=== PATIENT | female | born 1970 | race Caucasian/White ===

== ENCOUNTER 2020-03-18 07:48 | Outpatient (CLI) | payer BC, SELFPAY ==
--- NOTE | ~2020-03-18 | US_ITS ---
US right upper quadrant INDICATION: Elevated liver enzymes. PROCEDURE: Realtime right upper abdominal ultrasound. COMPARISON: No prior studies for comparison. FINDINGS: The pancreas is not well visualized due to bowel gas. No mass identified in the visualized pancreatic parenchyma. Liver echotexture is increased, consistent with fatty infiltration. There is normal directional flow in the portal vein. The gallbladder is normal without stones, gallbladder wall thickening or pericholecystic fluid. Comm on bile duct measures 4 mm. No sonographic Denis's sign. IMPRESSION: 1: Hepatic steatosis. Reviewed, dictated and finalized at location A. IMPRESSION: 1: Hepatic steatosis.
== END 2020-03-18 07:49 | disposition home or self-care (01) ==
PROVIDERS: PCP Internal Medicine; Visit Provider Internal Medicine
DX: R94.5 Abnormal results of liver function studies (principal)
CPT/HCPCS: 76705

== ENCOUNTER 2021-10-05 15:23 | Outpatient (CLI) | payer BC, SELFPAY ==
--- NOTE | ~2021-10-05 | US_ITS ---
EXAMINATION: US venous doppler [facility] DATE: 10/05/2021 15:43 INDICATION: Lower limb swelling. TECHNIQUE: Grayscale ultrasound images without and with compression and Doppler ultrasound images of the bilateral lower extremity veins were obtained. COMPARISON: None. FINDINGS: The visualized portions of right common femoral vein, profunda (deep) femoral vein, femoral vein, pop liteal vein, peroneal veins, posterior tibial veins, and greater saphenous vein outflow are patent. The visualized portions of left common femoral vein, profunda femoral vein, femoral vein, popliteal v ein, peroneal veins, posterior tibial veins, and greater saphenous vein outflow are patent. IMPRESSION: 1. No deep venous thrombosis. Reviewed, dictated and finalized at location A. PRESIDENT
== END 2021-10-05 15:24 | disposition home or self-care (01) ==
LOC: CHSIMG 15:26
PROVIDERS: PCP Internal Medicine; Visit Provider Internal Medicine
DX: M79.89 Other specified soft tissue disorders (principal); Z85.3 Personal history of malignant neoplasm of breast
CPT/HCPCS: 93970

== ENCOUNTER 2023-11-03 13:57 | Outpatient (CLI) | payer BC, SELFPAY ==
--- NOTE | ~2023-11-03 | XR_ITS ---
EXAMINATION: XR knee LT min 4V DATE: 11/03/2023 14:22 INDICATION: Left knee pain. TECHNIQUE: 4 views of left knee were obtained. COMPARISON: None. FINDINGS: There is lateral subluxation of patella. No fracture. There is severe osteoarthritis of pat ellofemoral compartment and mild osteoarthritis of medial and lateral compartments. No knee joint eff usion. There is a loose body in suprapatellar bursa. IMPRESSION: 1. Severe left knee osteoarthritis. 2. Loose body in suprapatellar bursa. Reviewed, dictated and finalized at location E. HANDISING ASSISTANT
--- NOTE | ~2023-11-03 | XR_ITS ---
EXAMINATION: XR knee RT min 4V DATE: 11/03/2023 14:22 INDICATION: Right knee pain. TECHNIQUE: 4 views of right knee were obtained. COMPARISON: None. FINDINGS: There is lateral subluxation of patella. No fracture. There is severe osteoarthritis of pat ellofemoral compartment and mild osteoarthritis of medial and lateral compartments. No knee joint eff usion. IMPRESSION: 1. Severe right knee osteoarthritis. Reviewed, dictated and finalized at location E. L BUTCHER
== END 2023-11-03 13:58 | disposition home or self-care (01) ==
LOC: CHSIMG 13:59
PROVIDERS: PCP Internal Medicine; Visit Provider Internal Medicine
DX: M25.562 Pain in left knee (principal); M25.561 Pain in right knee; M17.0 Bilateral primary osteoarthritis of knee; M23.42 Loose body in knee, left knee
CPT/HCPCS: 73564

== ENCOUNTER 2024-09-05 11:53 | Outpatient (CLI) | payer BC, SELFPAY ==
--- NOTE | ~2024-09-05 | US_ITS ---
US transvaginal Ordering provider: Paige Raygoza, History: . Post menopausal bleeding . Comparison: None. Technique: endovaginal ultrasound of the pelvis (Doppler ultrasound interrogation techniques used as needed for this exam.) FINDINGS: CERVIX: Normal. UTERUS: Measures 7.9x 4.5x 5 cm in length which is within normal limits and is anteverted. Heterogen ous echogenicity is noted. Small fibroid is seen measuring 1.4 x 0.9 x 1.1 cm. ENDOMETRIUM: Normal in thickness measuring 6 mm. No endometrial masses or fluid. Small cystic area se en in the endometrial cavity measuring 4 mm. CUL DE SAC: No free fluid. RIGHT OVARY: Not visualized. LEFT OVARY: Not visualized. ADNEXA: Normal. No mass. IMPRESSION: Highly suggestive small fibroids. Cystic area in the endometrium. Follow-up advised. Otherwise, frank l pelvic ultrasound. Reviewed, dictated and finalized at location A. ET MASTER/MISTRESS IMPRESSION: Highly suggestive small fibroids. Cystic area in the endometrium. Follow-up adv ised. Otherwise, normal pelvic ultrasound.
== END 2024-09-05 11:54 | disposition home or self-care (01) ==
PROVIDERS: PCP Internal Medicine; Visit Provider Nurse Practitioner
DX: R93.89 Abnormal findings on diagnostic imaging of other specified body structures (principal); N95.0 Postmenopausal bleeding
CPT/HCPCS: 76830

== ENCOUNTER 2024-10-22 00:12 | Day surgery (SDC) | payer BC, SELFPAY ==
[2024-10-12 16:03] VITALS: BMI 38.0
--- NOTE | 2024-10-12 16:19 | SUR.PREOP ---
Report to the Outpatient Waiting Room, entrance under the green pavilion located off [facility], at time 6:30a.m. on date 10/22/2024. Planned Procedure Time: 8:30a.m.? Time changes happen often and if your time is changed the preop area will call you the afternoon before. - You and your visitor will be asked to self-screen and do not enter if you have any COVID symptoms. Please call surgeon if you need to reschedule. - A mask is optional within the hospital at this time. Patients may have clear liquids (water, carbonated beverages, clear teas, apple juice) until 3 hours prior to surgery with a maximum of 20 ounces. - No food from midnight until time of surgery and no smoking. This includes no chewing gum, candy or mints. - Infants may have breast milk until 4 hours before surgery, infant formula 6 hours prior to surgery. - Children will be allowed to drink immediately following surgery.? If applicable, please bring a bottle or sippy cup to assist with drinking. Juice, water, soda, and popsicles are readily available.? For infants on formula, please bring formula the day of surgery.? Pacifiers are allowed. Take only the following medications with a SIP of water on the morning of surgery: venlafaxine DO NOT STOP ANY OF YOUR OTHER PRESCRIPTION MEDICATIONS PRIOR TO SURGERY EXCEPT THE FOLLOWING Medications to discontinue per physician vitamins and supplements Date to take last dose 10/19/2024 Please no make-up, nail korean, hairspray, perfume, deodorant, or body powder the day of surgery.? No jewelry (including any body piercings) or valuables the day of surgery, leave them at home.? Please take a shower or bath the night before, or the morning of, surgery with an antibacterial soap.? Wear comfortable, loose fitting clothing. - Jewelry must be removed prior to entering the operating room.? Rings and piercings that are not removed may be cut off. - The hospital will not accept responsibility for valuables.? - Please leave all valuables, including medications, at home the day of surgery. If you are going home after surgery, a licensed ups driver must drive you home.? - NO public transportation without another adult if you receive anesthesia. - We recommend that an adult stay with you for 24 hours following discharge. - We also recommend that you do not drive, make important decision, drink alcoholic beverages, or take any drugs that were not prescribed by your health care provider for at least 24 hours after your discharge time. For Pediatric surgeries, we recommend two adults accompany the child home. Follow any additional instructions given to you from your surgeon. Telephone instructions given to Theresa Paz and asked if any additional questions and then verbalized understanding. Patient advised to call surgeon office or pre surgery nurse liaison [phone] if any additional questions.
[2024-10-22 06:45] VITALS: BP 118/90; PULSE 88; RESP 18; TEMP 36.6; O2SAT 99
[2024-10-22 07:03] LABS: Glucose Point of Care 86 mg/dl (65-105)
[2024-10-22] MEDS: ACETAMINOPHEN 500 MG TABLET 1000 MG PO (07:17)
--- NOTE | 2024-10-22 07:21 | WPDHPUPDATE1 ---
History and Physical Update Update Date/Time: 10/22/24 07:21 History and Physical has been reviewed, including an updated exam of the patient. There are NO changes in the patient's condition. Risks, benefits, and alternatives have been discussed and questions answered. Patient agrees to proceed with procedure.
--- NOTE | 2024-10-22 07:22 | PM.HPGS ---
History of Present Illness History of Present Illness Consent: Risks, benefits, and alternatives have been discussed and questions answered. Patient agrees to proceed with procedure. Chief complaint: post menopausal bleeding Narrative: Theresa Paz is a 54 year old female with postmenopausal bleeding. Pelvic ultrasound shows a thickened endometrium. In addition it is shows a small cystic area in the endometrial cavity. It was recommended to undergo D&C hysteroscopy. Risks of infection, bleeding perforation, and possible pathology are reviewed. Patient voices understanding and agrees to proceed. Review of Systems Review of Systems: not repeated day of surgery; patient states no changes in status [facility] Past Medical History Medical History (Updated 10/22/24 @ 07:24 by Wanda Velázquez MD) Ductal carcinoma in situ (DCIS) of left breast Diabetes Surgical History Surgical History (Updated 10/22/24 @ 07:24 by Wanda Velázquez MD) History of partial mastectomy of left breast H/O exploratory laparotomy Small-bowel obstruction with partial small intestine removed Social History Social History Smoking status: Never smoker Living arrangements: alone Meds Home Medications and Allergies Home Medications ?Medication ?Instructions ?Recorded ?Confirmed ?Type cholecalciferol (vitamin D3) 125 125 mcg PO DAILY 10/12/24 10/22/24 History mcg (5,000 unit) tablet (Vitamin D3) coenzyme Q10 100 mg capsule (Co 200 mg PO DAILY 10/12/24 10/22/24 History Q-10) lisinopril 10 mg tablet 10 mg PO DAILY 10/12/24 10/22/24 History lovastatin 20 mg tablet 20 mg PO DAILY 10/12/24 10/22/24 History lysinate glycinate magnesium 400 mg PO DAILY 10/12/24 10/22/24 History metformin 500 mg tablet,extended 1,000 mg PO BID 10/12/24 10/22/24 History release 24 hr semaglutide 2 mg/dose (8 mg/3 mL) 2 mg subcut WEEKLY 10/12/24 10/22/24 History subcutaneous pen injector (Ozempic) venlafaxine 150 mg 150 mg PO DAILY 10/12/24 10/22/24 History capsule,extended release 24 hr Allergies Allergy/AdvReac Type Severity Reaction Status Date / Time No Known Allergies Allergy Verified 10/12/24 15:47 Exam Const: General: healthy appearing and alert Orientation/consciousness: patient oriented x3 Resp: Effort & Inspection: normal respiratory effort GI: GI Palp: Yes Soft to palpation, No Tenderness to palpation present (GI) and No Palpable mass present : External Female Exam: normal external appearance Speculum Exam - Vagina: normal appearance of the vagina and normal vaginal discharge Speculum Exam - Cervix: normal appearance of the cervix Bimanual exam- vagina & uterus: uterine size normal and consistency normal Bimanual Exam- Adnexa, other: normal adnexae and No adnexal tenderness Neuro: General: patient oriented x3 Assessment and Plan Assessment and plan (1) Post-menopausal bleeding: Code(s): N95.0 - Postmenopausal bleeding Status: Acute Assessment and Plan: Plan to proceed with D&C hysteroscopy
[2024-10-22] MEDS: LACTATED RINGERS 1,000 ML 30 ML IV CONT (07:45)
--- NOTE | 2024-10-22 08:31 | WPDANESEPPF ---
Anes - Initial Pre Proc Eval Procedure: Operation Date: 10/22/24 08:30 Proposed Procedures p Hysteroscopy Dilation and Curettage - Wanda Velázquez MD Date/Time: 10/22/24 08:31 Surgeon: Wanda Velázquez MD Pre Op Diagnosis: post menopausal bleeding Patient Data Age: 54 Gender: F Height: 1.7 m Weight: 113.3 kg Last Vital Signs Temp 97.8 F 10/22/24 06:45 Pulse 88 10/22/24 06:45 Resp 18 10/22/24 06:45 BP 118/90 10/22/24 06:45 Pulse Ox 99 10/22/24 06:45 O2 Del Method Room Air 10/22/24 06:45 Allergies Allergy/AdvReac Type Severity Reaction Status Date / Time No Known Allergies Allergy Verified 10/12/24 15:47 Home Medications ?Medication ?Instructions ?Recorded ?Confirmed ?Type cholecalciferol (vitamin D3) 125 125 mcg PO DAILY 10/12/24 10/22/24 History mcg (5,000 unit) tablet (Vitamin D3) coenzyme Q10 100 mg capsule (Co 200 mg PO DAILY 10/12/24 10/22/24 History Q-10) lisinopril 10 mg tablet 10 mg PO DAILY 10/12/24 10/22/24 History lovastatin 20 mg tablet 20 mg PO DAILY 10/12/24 10/22/24 History lysinate glycinate magnesium 400 mg PO DAILY 10/12/24 10/22/24 History metformin 500 mg tablet,extended 1,000 mg PO BID 10/12/24 10/22/24 History release 24 hr semaglutide 2 mg/dose (8 mg/3 mL) 2 mg subcut WEEKLY 10/12/24 10/22/24 History subcutaneous pen injector (Ozempic) venlafaxine 150 mg 150 mg PO DAILY 10/12/24 10/22/24 History capsule,extended release 24 hr Laboratory Tests 10/22/24 07:00 POC Capillary Glucose 86 mg/dl (65-105) Patient hx anesthesia problems: none Family hx anesthesia problems: none Results Review: All pre-operative results and documents have been reviewed as part of the pre-operative evaluation. FORMERLY [facility] Past Medical History Medical History Ductal carcinoma in situ (DCIS) of left breast Diabetes Surgical History Surgical History History of partial mastectomy of left breast H/O exploratory laparotomy Small-bowel obstruction with partial small intestine removed Social History Social History Smoking status: Never smoker Living arrangements: alone Anes - Eval Final PreProcedure Day of Procedure 10/22/24 08:31 Patient weight: obese Heart: regular rate and rhythm Lungs: clear to auscultation Airway: Mallampati scale class II Neurological: alert and oriented Last oral intake: >/= 8 hours ASA classification: III Emergent: no Anesthetic plan: proceed Anesthesia type and monitoring: general GIVS and standard monitoring Results Review: All pre-operative results and documents have been reviewed as part of the pre-operative evaluation. HTN, hyperlipidemia, DM (fsbs 86). Informed Consent: The patient's anesthetic plan and its attendant risks and benefits were discussed with the patient/family/POA. Questions were solicited and answers provided to the satisfaction of the patient/family/POA.
[2024-10-22] MEDS: KETOROLAC 30 MG/ML VIAL (*BKC) IV PUSH (09:21)
--- NOTE | 2024-10-22 09:25 | P.OP_ITS ---
Procedure Note - Detailed Date of Procedure 10/22/24 Pre-op Diagnosis post menopausal bleeding Post-op Diagnosis Same Procedure Performed Hysteroscopic resection of endometrium Surgeon Wanda Velázquez MD Anesthesia MAC Findings Cervix is nulliparous and very stenotic. Endometrium is very atrophic and has m ultiple calcified areas and areas of outpouching consistent with adenomyosis. Description of Procedure The patient was taken to operating room and placed under anesthesia in the dorsal lithotomy position. She was prepped and draped in the usual sterile fashion. The Goodwin speculum was placed in the vagina and the cervix grasped on the anterior lip with a tenaculum. The uterine sound would not pass the external os. Hegar dilator would proceed approximately 1cm. The os Finders were opened and placed and went approximately 3cm. All 3 instruments were tried again and I could not get past 3cm. The hysteroscope was then used to visually see where the endocervix was and through hydrodissection I was able to enter the uterine cavity. The endometrium has multiple calcified areas as well as outpouchings. Due to the difficulty of entering the cavity the small Aveta resection device was placed and the calcified areas were resected. As much endometrium as could be removed was also resected using the same device. The hysteroscope was then removed and the sound attempted to be placed and this was not successful therefore the procedure was stopped. All instruments are removed. Patient was awakened from anesthesia and taken to recovery in stable condition. Sponge, needle, and instrument counts are correct per the OR staff. Estimated Blood Loss 5 Drains No Packing No Pathology Yes (Endometrial curettings) Complications No immediate complications Condition Stable Disposition PACU
[2024-10-22 09:28] VITALS: BP 129/85; PULSE 71; RESP 16; O2SAT 99
[2024-10-22 09:52] LABS: Glucose Point of Care 93 mg/dl (65-105)
[2024-10-22 09:55] VITALS: BP 129/85; PULSE 71; RESP 14; O2SAT 100
[2024-10-22 10:25] VITALS: BP 127/82; PULSE 72; RESP 14
== END 2024-10-22 10:35 | disposition home or self-care (01) ==
PROVIDERS: PCP Internal Medicine; Visit Provider Obstetrics & Gynecology Gynecology
PROC: 0U5B8ZZ Destruction of Endometrium, Via Natural or Artificial Opening Endoscopic (ICD-10-PCS; CPT 58563; principal; 2024-10-22 08:30)
DX: R93.89 Abnormal findings on diagnostic imaging of other specified body structures (principal); N85.8 Other specified noninflammatory disorders of uterus; E11.9 Type 2 diabetes mellitus without complications; E66.9 Obesity, unspecified; Z68.39 Body mass index [BMI] 39.0-39.9, adult; Z79.84 Long term (current) use of oral hypoglycemic drugs; Z79.85 Long-term (current) use of injectable non-insulin antidiabetic drugs; Z98.890 Other specified postprocedural states; Z90.49 Acquired absence of other specified parts of digestive tract; Z85.3 Personal history of malignant neoplasm of breast
CPT/HCPCS: 58558; 82948; 88305; A9270; J1100; J1885; J2003; J2250; J2405; J2704; J3010; J7120

== ENCOUNTER 2025-04-22 08:12 | Outpatient (CLI) | payer BC, SELFPAY ==
--- OUTSIDE RECORDS SUMMARY | 2025-04-22 08:16 | XMS_ITS | Encounter Summary ---
Author Organization [facility] Address [address] [place] [address] Phone Care Team Providers Care Collector Of Aquarium Specimens Name Role Phone Wanda Velázquez MD Unavailable [phone] Chaya Paredes MD Primary Care Provider + [phone] Raisa Mcfadden MD Unavailable [phone] Micaela Lozada MD Unavailable [phone] Anmol Gallardo MD PhD Unavailable + [phone] Encounter Details Date Type Department Care Team (Late st Contact Info) Description 07/04/2019 Documentation [facility] Surgery [address] [place] [address] [place] [address] Nancy Gonzalez CMA Social History Tobacco Use Types Packs/Day Years Used Date Smoking Tobacco: Never Smokeless Tobacco: Never Alcohol Use Standard Drinks/Week Comments Yes 0 (1 standard drink = 0.6 oz pur e alcohol) rarely AUDIT-C Answer Date Recorded Frequency of Alcohol Consumption Monthly or less 06/08/2019 Average Number of Drinks Not on file 019 Frequency of Binge Drinking Not on file 05/12 Comments No Sex and Gender Information Value Date Recorded Sex Assigned at Not on file Legal Sex Female 9:29 AM CDT Gender Identity Not on file Sexual Orientation Not on file documented as of this encounter Plan of Treatment Not on file documented as of this encounter Visit Diagnoses Not on filedocumented in this encounter Care Teams Collector Of Aquarium Specimens Relationship Specialty Start Date End Date Chaya Paredes MD [address] [place] [address] PCP - General Internal Medicine 05/04/19 Wanda Velázquez MD [address] [place] [address] Referring Physician Gynecology 05/04/19 Raisa Mcfadden MD [address] [place] [address] Radiation Oncologist Radiation Oncology 06/15/1907/31 Micaela Lozada MD [address] [place] [address] Referring Physician Surgical Oncology 06/15/19 Anmol Gallardo MD PhD [address] [place] [address] Radiation Oncologist Radiation Oncology 08/01/19 documented as of this encounter
--- OUTSIDE RECORDS SUMMARY | 2025-04-22 08:16 | XMS_ITS | Referral Summary ---
Author Organization [facility] Address [address] [place] [address] Care Team Providers Care Sales Support Representative Name Role Phone Wanda Velázquez MD Unavailable [phone] Chaya Paredes MD Primary Care Provider + [phone] Micaela Lozada MD Unavailable [phone] Anmol Gallardo MD PhD Unavailable [phone] Allergies No known active allergies Medications lisinopril (PRINIVIL,ZESTR IL) 10 mg tabletIndicatio ns:Protect kidneys Take 1 tablet (10 mg total) by mouth every morning 0 9 Active metFORMIN XR (GLUCOPHAGE XR) 500 mg 24 hr tablet Take 2 tablets (1,000 mg total) by mouth 2 (two) times a day 94 9 Active cholecalciferol (VITAMIN D-3) 1,000 unit (25 mcg) tablet Take 1 tablet (1,000 Units total) by mouth daily Active MAGNESIUM ORAL Take by mouth A ctive tamoxifen (NOLVADEX) 10 mg tabletIndicatio ns:prevention of breast cancer in high risk women Take 1 tablet (10 mg total) by mouth daily 30 tablet 11 3 Active Additional Information Patient not taking.Reported on 09/05/2024 lovastatin (MEVACOR) 20 mg tablet 4 Active Ozempic 2 mg/dose (8 mg/3 mL) pen injector injection INJECT 2MG UNDER THE SKIN ONCE WEEKLY 4 Active venlafaxine XR (EFFEXOR-XR) 150 mg 24 hr capsule Take 1 capsule (150 mg total) by mouth daily 4 Active Active Problems Problem Noted Date Diagnosed Date Prophylactic use of tamoxifen 01/06/2022 Encounter for screening mammogram for breast can cer 01/06/2022 Family history of breast cancer 01/06/2022 Encounter for monitoring tamoxifen therapy 05/09 Encounter for follow-up surv eillance of ductal carcinoma in situ (DCIS) of breast 09/10/2019 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 07/04/2019 Ductal carcinoma in situ (DCIS) of left breast 0 06/15/2019 Cancer Staging:Clinical stage from 05/24/2019:Stage 0(cTis (Paget), cN0, cM0, G3, ER+, DC+, HER2: Not Assessed) - Signed by Raisa Mcfadden MD on 06/15/2019 Resolved Problems Problem Noted Date Diagnosed Date Resolved Date Encounter to discuss treatment options 09/10/2019 06/16/2022 Encounter to discuss test results 09/10/2019 06/16/2022 Cellulitis of left breast 07/04/2019 Immunizations Immunization Administration Dates Next Due Pneumococcal Conjugate PCV 13 11/01/2018 Tdap 11/01/2018 Social History Tobacco Use Types Packs/Day Years Used Date Smoking Tobacco: Never Smokeless Tobacco: Never Alcohol Use Standard Drinks/Week Comments Not Currently 0 (1 standard drink = 0.6 oz pur e alcohol) rarely AUDIT-C Answer Date Recorded Q1: How often do you have a drink containing alc ohol? Monthly or less 09/05/2024 Q2: How many drinks containi ng alcohol do you have on a typical day when you are drinking? 1 or 2 09/05/2024 Q3: How often do you have si x or more drinks on one occasion? Never 09/05/2024 Comments No Sex and Gender Information Value Date Recorded Sex Assigned at Not on file Legal Sex Female 9:29 AM CDT Gender Identity Not on file Sexual Orientation Not on file Last Filed Vital Signs Vital Sign Reading Time Taken Comments Blood Pressure 103/70 09/05/2024 2:25 PM [employer] Pulse 83 09/05/2024 2:25 PM [employer] Temperature 36.6 C (97.9 F) 09/05/2024 2:25 PM [employer] Respiratory Rate 18 09/05/2024 2:25 PM [employer] Oxygen Saturation 99% 09/05/2024 2:25 PM [employer] Inhaled Oxygen Concentration - - Weight 108.9 kg (240 lb) 09/05/2024 2:25 PM [employer] Height 170.2 cm (5' 7) 09/05/2024 2:25 PM [employer] Body Mass Index 37.59 09/05/2024 2:25 PM [employer] Plan of Treatment Not on file Medical Devices Implanted Type Area Soft Tile Setter Device Identifier Shelf Expiration Date Model / Serial / Lot Clip-05/24/2019 Implanted:Qty: 1 on 05/24/2019 by Carmenza Reece MD Clip Left: Breast Description:[employer] for e viva Procedures Procedure Name Priority Date/Time Associated Diagnosis Comments SCREENING MAMMOGRAM BILATERAL W CJ Schedule Routine, Read Routine (OP Routine) 09/05/2024 2:06 PM [employer] Encounter for screening mammogram for breast cancer from Last 3 Months or Most Recently Relevant to Health Maintenance Results * Screening Mammogram Bilateral W Cj (09/05/2024 2:06 PM [employer]) Anatomical Region Laterality Modality Breast Bilateral Mammography Impressions 09/05/2024 2:51 PM [employer] BI-RADS ATLAS category (overall): 2 - Benign There is no mammographic evidence of malignancy. A 1 year screening mammogram is recommended. The patient has been or will be contacted. We recommend annual screening mammography for women at average risk of breast cancer beginning at age 40, based on guidelines of the [employer] [employer] (ACR Practice Parameter for the Performance of Screening and Diagnostic Mammography) and [place] [employer]. For women with and elevated risk of breast cancer, please refer to the ACR Practice Parameter for specific screening recommendations. The patient will be entered into a reminder system with a target due date of 1 year for her next screening exam. Narrative 09/05/2024 2:51 PM [employer] Screening Mammogram Bilateral W Cj: 09/05/24 The study was acquired using full field digital technology and interpreted from soft copy. 2D digital mammographic views, as well as 3D digital tomosynthesis were performed in the CC and MLO projections. This study was resulted using Computer-Aided Detection (CAD). CLINICAL: Encounter for screening mammogram for breast cancer. Medical history includes breast cancer and radiation therapy. History of breast cancer in Mother. COMPARISONS: 05/18/2023 Screening Mammogram Bilateral W Cj 05/14/2022 Diagnostic Mammogram Bilateral W Cj 05/13/2021 Diagnostic Mammogram Bilateral W Cj 05/12/2020 Diagnostic Mammogram Bilateral W Cj BREAST TISSUE: There are scattered areas of fibroglandular density. FINDINGS: Left breast post conservation therapy changes are redemonstrated. New coarse calcifications at the left lumpectomy site are consistent with benign evolving fat necrosis. Left breast skin/trabecular thickening from prior radiation therapy has improved. There is no new suspicious finding in either breast on mammogram. Susan Brito MD IMG MAMMO PROCEDURES Final Result from Last 3 Months or Most Recently Relevant to Health Maintenance Insurance [employer] Care Teams Sales Support Representative Relationship Specialty Start Date End Date Chaya Paredes MD [address] [place] [address] PCP - General Internal Medicine 05/04/19 Wanda Velázquez MD [address] [place], [place] [id number] Referring Physician Gynecology 05/04/19 Micaela Lozada MD [address] [place], [place] [id number] Referring Physician Surgical Oncology 06/15/19 Anmol Gallardo MD PhD [address] [place] [address] Radiation Oncologist Radiation Oncology 08/01/19
--- OUTSIDE RECORDS SUMMARY | 2025-04-22 08:16 | XMS_ITS | Clinical Summary ---
Author Organization [facility] Address [address] [place] [address] Care Team Providers Care Rn Gyn Name Role Phone Wanda Velázquez MD Unavailable [phone] Chaya Paredes MD Primary Care Provider + [phone] Micaela Lozada MD Unavailable [phone] Anmol Gallardo MD PhD Unavailable + [phone] Allergies No known active allergies Medications lisinopril [...] 05/24/2019:Stage 0(cTis (Paget), cN0, cM0, G3, ER+, SC+, HER2: Not Assessed) - Signed by Raisa Mcfadden MD on 06/15/2019 Resolved Problems Problem Noted Date Diagnosed Date Resolved Date Encounter to discuss treatment options 09/10/2019 06/16/2022 Encounter to discuss test results 09/10/2019 06/16/2022 Cellulitis of left breast 07/04/2019 Immunizations Immunization Administration Dates Next Due Pneumococcal Conjugate PCV 13 11/01/2018 Tdap 11/01/2018 Surgical History Surgery Date Site/Laterality Comments BREAST BIOPSY 05/24/2019 Left APPENDECTOMY EYE SURGERY Left laser surgery left eye COLON SURGERY small intestine surgery due to scar tissue that was wrapped around it from appy BREAST LUMPECTOMY Medical History Medical History Date Comments Hypertension Hyperlipidemia Type 2 diabetes mellitus (HCC) Migraine Arthritis kimberly knees Breast cancer (HCC) 05/24/2019 Left History of radiation therapy Family History Medical History Relation Name Comments Breast cancer Mother Colon cancer Paternal Grandmother Anesthesia problems Neg Hx Relation Name Status Comments Mother Paternal Grandmother Social History Tobacco Use Types Packs/Day Years [...] on file Sexual Orientation Not on file Obstetrics History Last Filed Vital Signs Vital Sign Reading Time Taken Comments Blood Pressure 103/70 09/05/2024 2:25 PM NURSING ADMINISTRATOR Pulse 83 09/05/2024 2:25 PM NURSING ADMINISTRATOR Temperature 36.6 C (97.9 F) 09/05/2024 2:25 PM NURSING ADMINISTRATOR Respiratory Rate 18 09/05/2024 2:25 PM NURSING ADMINISTRATOR Oxygen Saturation 99% 09/05/2024 2:25 PM NURSING ADMINISTRATOR Inhaled Oxygen Concentration - - Weight 108.9 kg (240 lb) 09/05/2024 2:25 PM NURSING ADMINISTRATOR Height 170.2 cm (5' 7) 09/05/2024 2:25 PM NURSING ADMINISTRATOR Body Mass Index 37.59 09/05/2024 2:25 PM NURSING ADMINISTRATOR Plan of Treatment Health Maintenance Due Date Last Done Comments Cervical Cancer Screening 1968 Colon Cancer Screening-Colonoscopy 1968 Depression Screening 1968 Hepatitis C Screening 1968 Hepatitis B Screening 1986 Regular Well Visit/Exam 18-64 1986 Zoster Vaccine (1 of 2) 1987 Pneumococcal vaccine <65 (2 of 2 - PPSV23) 12/27/2018 11/01/2018 Influenza Vaccine (Season Ended) 2025 Breast Cancer Screening-Mammogram 09/05/2025 09/05/2024, 05/18/2023, 05/14/2022, Additional history exists DTaP/Tdap/Td Vaccine (2 - Td or Tdap) 11/01/2028 11/01/2018 Medical Devices Implanted Type Area Risk Control Field Representative Device Identifier Shelf Expiration Date Model / Serial / Lot Clip-05/24/2019 Implanted:Qty: 1 on 05/24/2019 by Carmenza Reece MD Clip Left: Breast Description:[employer] for [employer] viva Procedures Procedure Name Priority Date/Time Associated Diagnosis Comments SCREENING MAMMOGRAM BILATERAL W CJ Schedule Routine, Read Routine (OP Routine) 09/05/2024 2:06 PM NURSING ADMINISTRATOR Encounter for screening mammogram for breast cancer from Last 3 Months or Most Recently Relevant to Health Maintenance Results * Screening Mammogram Bilateral W Cj (09/05/2024 2:06 PM NURSING ADMINISTRATOR) Anatomical Region Laterality Modality Breast Bilateral Mammography Impressions 09/05/2024 2:51 PM NURSING ADMINISTRATOR BI-RADS ATLAS category (overall): 2 - Benign There is no mammographic evidence of malignancy. A 1 year screening mammogram is recommended. The patient has been or will be contacted. We recommend annual screening mammography for women at average risk of breast cancer beginning at age 40, based on guidelines of the [employer] (ACR Practice Parameter for the Performance of Screening and Diagnostic Mammography) and [employer]. For women with and elevated risk of breast cancer, please refer to the ACR Practice Parameter for specific screening recommendations. The patient will be entered into a reminder system with a target due date of 1 year for her next screening exam. Narrative 09/05/2024 2:51 PM NURSING ADMINISTRATOR Screening Mammogram Bilateral W Cj: 09/05/24 The [...] Most Recently Relevant to Health Maintenance Insurance [employer] [place] [employer] [place] Care Teams Rn Gyn Relationship Specialty Start Date End Date Chaya Paredes MD [address] [place] [address] PCP - General Internal Medicine 05/04/19 Wanda Velázquez MD [address] [place] [address] Referring Physician Gynecology 05/04/19 Micaela Lozada MD [address] [place], [place] [id number] Referring Physician Surgical Oncology 06/15/19 Anmol Gallardo MD PhD [address] [place] [address] Radiation Oncologist Radiation Oncology 08/01/19
--- OUTSIDE RECORDS SUMMARY | 2025-04-22 08:16 | XMS_ITS ---
Author Organization [facility] Address [address] [place] [address] Care Team Providers Care Recreation Director Name Role Phone Wanda Velázquez MD Unavailable [phone] Chaya Paredes MD Primary Care Provider + [phone] Micaela Lozada MD Unavailable [phone] Anmol Gallardo MD PhD Unavailable + [phone] Active Problems Problem Noted Date Diagnosed Date [...] 05/24/2019:Stage 0(cTis (Paget), cN0, cM0, G3, ER+, UT+, HER2: Not Assessed) - Signed by Raisa Mcfadden MD on 06/15/2019 Current Treatment and Therapy Plans No current plan information found. Past Treatment and Therapy Plans No past plan information found. Radiation Treatments * Course [id number] 07/30/2019 - 08/27/2019 Treatment Period Energy Fraction Dose Fractions Total Dose Plans Planned L BRST BOOST 07/30/2019 - 08/27/2019 200 5 / 1,000 LT BREAST 08/06/2019 - 08/27/2019 266 16 / 4,256 Reference Points Delivered Breast_L 08/06/2019 - 08/27/2019 4,256 PTV_boost 07/30/2019 - 08/27/2019 1,000 Resolved Problems Problem Noted Date Diagnosed Date Resolved Date Encounter to discuss treatment options 09/10/2019 06/16/2022 Encounter to discuss test results 09/10/2019 06/16/2022 Cellulitis of left breast 07/04/2019
[2025-04-22 08:29] LABS: Hematocrit 42.0 % (35.0-49.0); Hemoglobin 13.5 g/dL (12.0-15.0); Immature Granulocyte Percent A 0.3 % (0.0-0.0); Lymphocytes Absolute Auto 2.08 K/mm3 (1.10-4.50); Mean Corpuscular HGB Conc 32.1 g/dL (32-36); Mean Corpuscular Hemoglobin 29.3 pg (27.0-31.0); Mean Corpuscular Volume 91.3 fL (78.0-102.0); Nucleated Red Blood Cells Absolute Auto 0.00 K/mm3 (0.00-0.00); Nucleated Red Blood Cells Perc 0.0 % (0-0.0); Platelet Count Result 348 K/mm3 (150-420); Red Blood Count 4.60 M/mm3 (4.20-5.40); White Blood Count 10.3 K/mm3 (4.8-10.8)
[2025-04-22 08:37] LABS: Hemoglobin A1C 6.4 % (<5.7)
[2025-04-22 08:39] LABS: Add Urine Microscopic? NO; Appearance Urine Clear (Clear); Glucose Urine UA Negative (Negative); Leukocyte Esterase Ur Negative LEU/UL (Negative); Nitrate Urine Negative (Negative); Specific Grav Ur 1.015 (1.010-1.020)
[2025-04-22 08:50] LABS: MALB Creatinine Ratio 12.1 mg/g (0-30)
[2025-04-22 08:56] LABS: Alanine Aminotransferase 38 U/L (6-35); Albumin Level 4.1 g/dL (3.5-5.1); Alkaline Phosphatase 93 U/L (38-126); Anion Gap 10 mmol/L (4-12); Aspartate Amino Transferase 39 U/L (14-36); Bilirubin,Total 0.7 mg/dL (0.2-1.3); Blood Urea Nitrogen 10 mg/dL (7-17); CRP < 0.5 mg/dL (<1.0); Calcium 9.2 mg/dL (8.4-10.2); Carbon Dioxide 20 mmol/L (22-30); Chloride 108 mmol/L (98-107); Cholesterol 191 mg/dL (0-200); Estimated Glomerular Filt Rate > 60; Glucose 139 mg/dL (65-110); HDL Direct 47 mg/dL; Osmolality Calculated 287 mOsm/kg (285-295); Potassium 4.4 mmol/L (3.4-5.0); Sodium 138 mmol/L (137-145); Total Protein 6.9 g/dL (6.3-8.2); Triglycerides 231 mg/dL (<150); Uric Acid 5.3 mg/dL (2.5-7.5)
[2025-04-23 13:09] LABS: Anti-CCP Ab, IgG/IgA 4 units (0-19)
== END 2025-04-22 08:13 | disposition home or self-care (01) ==
LOC: CHSLAB 08:15
PROVIDERS: PCP Internal Medicine; Visit Provider Internal Medicine
DX: E11.9 Type 2 diabetes mellitus without complications (principal); I10 Essential (primary) hypertension; E78.2 Mixed hyperlipidemia; M25.562 Pain in left knee
CPT/HCPCS: 36415; 80053; 80061; 81003; 82043; 83036; 84550; 85025; 85652; 86140; 86200; 86430

== ENCOUNTER 2025-05-07 10:10 | Outpatient (RCR) | payer BC, SELFPAY ==
--- NOTE | 2025-05-07 11:18 | PTOPEVAL1 ---
Assessment and note entered by Naomie Mayes DPT Evaluation Information Assessment Status Evaluation Diagnosis B knee pain ICD-10 Condition Codes (PT) Pain in right knee M25.561,Pain in left knee M25. 562 Onset 05/02/25 Subjective Information Patient reports she has had B knee pain for the last few years that is getting progressively worse . She reports x-rays show arthritis. She reports pain and difficulty with stair navigation, squatting to pickle solution maker objects and getting up off the floor. 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 She reports pain is at patella on both knees. She has no follow up at this time. Reported Pain Level Pain Score 3,3: Self Report Assessment PT Clinical Summary Mrs. Paz is a 54 year old female who presents to PT with B knee pain. She demonstrates decreased B LE strength and impaired gait limiting her ability to navigate stairs, squat to pickle solution maker objects and get up off of the floor. She would benefit from skilled PT to address impairments and return to PLOF. Plan of Care Interventions Electrical Stimulation,Gait Training,Hot Pack/Cold Pack,Manual Therapy,Mechanical Traction,Neuro Re- education,Patient/Caregiver Education,Therapeutic Activities,Therapeutic Exercise PT Services Indicated Yes Treatment Frequency and 2x weekly for 10 visits Duration These treatments will address the objective and functional deficits as defined above. The patient will be advanced safely and appropriately in order for the patient to progress towards his/her prior level of function. Additional exercises will be introduced and as well as a comprehensive home exercise program upon discharge, if needed, ?to ensure carryover of functional gains achieved in the clinic. This treatment plan has been reviewed and agreement upon by the patient.
--- NOTE | 2025-06-11 16:43 | PTOPREEVAL ---
Assessment and note entered by Naomie Mayes DPT Evaluation Information Assessment Status Evaluation Diagnosis B knee pain ICD-10 Condition Codes (PT) Pain in right knee M25.561,Pain in left knee M25. 562 Onset 05/02/25 Subjective Information Patient reports that knees feel a little bit better. She reports at times she can noticed improved stair navigation. She reports that getting out of a chair and standing continue to be difficult. she does report she can tolerate longer periods of activity. she would like to continue with skilled PT Reported Pain Level Pain Score 4,4: Self Report Assessment PT Clinical Summary Mrs. Paz has attended 10 visits of skilled PT with good progress towards goals. She demonstrates increased B LE strength and improved stair navigation. She continues to have difficulty with standing for long periods of time and getting up out of a chair. She would benefit from continued skilled PT to address remaining impairments and return to PLOF. Plan of Care Interventions Electrical Stimulation,Gait Training,Hot Pack/Cold Pack,Manual Therapy,Mechanical Traction,Neuro Re- education,Patient/Caregiver Education,Therapeutic Activities,Therapeutic Exercise PT Services Indicated Yes Treatment Frequency and continue 2x weekly for 8 additional visits Duration These treatments will address the objective and functional deficits as defined above. The patient will be advanced safely and appropriately in order for the patient to progress towards his/her prior level of function. Additional exercises will be introduced and as well as a comprehensive home exercise program upon discharge, if needed, ?to ensure carryover of functional gains achieved in the clinic. This treatment plan has been reviewed and agreement upon by the patient.
--- NOTE | 2025-07-22 16:05 | OPREHPOC ---
Outpatient Therapy Plan of Care This is a Multidisciplinary Plan of Care that may contain components documented by all disciplines (PT, OT, and ST.) PT Problem 1 PT Problem #1 Knowledge Deficit PT Goal 1 Goal / Goal Update Patient to demonstrate independence with HEP Target Visit 5 Progress Met PT Problem 2 PT Problem #2 Pain PT Goal 1 Goal / Goal Update 1. Patient to report highest pain at 2/10 2. Patient to report ability to complete house hold tasks without increase in B knee pain continue Target Visit 18 Progress Met PT Problem 3 PT Problem #3 Impaired Strength PT Goal 1 Goal / Goal Update 1. Patient to demonstrate 5/5 B knee strength and 4+/5 B hip strength tor return to squatting to hand picker objects. met 2. Patient to demonstrate ability to squat without increase in B knee pain. not met Target Visit 18 Progress Partially Met PT Problem 4 PT Problem #4 Impaired Functional Mobility PT Goal 1 Goal / Goal Update 1. Patient to demonstrate 20% improvement with LEFS. not met 2. Patient to navigate 1 flight of stairs without B knee pain. not met 3. Patient to report ability to get up off of floor. can get up, but painful Target Visit 18 Progress Not Met
--- NOTE | 2025-07-22 16:05 | PTOPDC ---
Assessment and note entered by JT File, PT Evaluation Information Assessment Status Discharge Diagnosis B knee pain ICD-10 Condition Codes (PT) Pain in right knee M25.561,Pain in left knee M25. 562 Onset 05/02/25 Subjective Information patient reports today is her last therapy visit for her knees. she reports she is focused on putting off her knee replacements until she is 58, or atleast after she is retired. she reports she is improved in most activities, but still struggles the most with squatting and stairs. Reported Pain Level Pain Score 0: Self Report Assessment PT Clinical Summary mrs. hoover is a pleasant 54 yo woman who presents to skilled PT services for her 18th skilled PT for bilateral knee pain. she presents with continued crepitus and grinding in the knees with squatting, stairs, and bending activities. however , her rom and strength are improved. as of this date, patient reports she is not ready to have a knee replacement. she is compliant with her HEP, and will do well to DC to an independent HEP at this time. Plan of Care PT Services Indicated Yes
== END 2025-07-22 18:21 | disposition home or self-care (01) ==
LOC: CHSPT 10:10
PROVIDERS: PCP Internal Medicine; Visit Provider Internal Medicine
DX: M25.561 Pain in right knee (principal); M25.562 Pain in left knee
CPT/HCPCS: 97110; 97112; 97140; 97161; 97530